=== PATIENT | female | born 1960 | race Caucasian/White ===

== ENCOUNTER → 2021-11-12 12:32 | Outpatient (CLI) | payer OTHER, SELFPAY ==
--- NOTE | 2021-11-12 | DI.RAD.S_ITS ---
PROCEDURE: FL BARIUM SWALLOW INDICATIONS: Heartburn COMPARISON: None. FINDINGS: Function: There is normal esophageal peristalsis. Gastroesophageal reflux is noted during the study which occurred without provocative maneuvers. There is normal transit of a calibrated barium tablet through the esophagus into the stomach. Swallowing reflex is normal. No laryngotracheal penetration or aspiration. No pathologic vallecular pooling. Morphology: Air-contrast images demonstrate normal mucosal morphology. Single contrast views show no esophageal strictures, extrinsic mass effects, or diverticula. Limited images of the stomach demonstrate normal appearance. IMPRESSION: 1. Gastroesophageal reflux. 2. No esophageal mass or stricture. 3. No laryngotracheal aspiration. Dictated by: Angleika Mcnally MD, PhD on 11/12/2021 at 14:41 Approved by: Angelika Mcnally MD, PhD on 11/12/2021 at 14:43
== END ==
PROVIDERS: PCP Nurse Practitioner; Referring Provider Internal Medicine Gastroenterology; Visit Provider Internal Medicine Gastroenterology
DX: R14.2 Eructation (principal); R12 Heartburn; K21.9 Gastro-esophageal reflux disease without esophagitis
CPT/HCPCS: 74220